=== PATIENT | male | born 1965 | race Two or more races ===

== ENCOUNTER 2019-08-11 07:30 | Inpatient (IN) | payer OTHER ==
[~2019-08-11] VITALS: Ht 170.2 cm; Wt 129.7 kg
[2019-09-21] MEDS ORDERED: ATORVASTATIN CA40 MG ORAL (15:25)
[2019-09-21] MEDS ORDERED: LOSARTAN POTASS50 MG ORAL (15:25)
[2019-09-21] MEDS ORDERED: HYDROCHLOROTHIA50 MG ORAL (15:26)
[2019-09-21] MEDS ORDERED: ASPIR 8181 MG ORAL (15:27)
[2019-09-22] VITALS (14 sets, daily range): BP systolic 107–134; BP diastolic 59–94
[2019-09-22] MEDS ORDERED: LR 1000ml 1,000 ML IVLG SCH (09:43)
--- NOTE | 2019-09-22 09:43 | Anethesia Preoperative Eval ---
Anesthesia Pre-op PMH/ROS General Date of Evaluation: September 22, 2019 Time of Evaluation: 10:42 Anesthesiologist: Sidney ASA Score: ASA 3 Mallampati Score Class I : Soft palate, uvula, fauces, pillars visible Class II: Soft palate, uvula, fauces visible Class III: Soft palate, base of uvula visible Class IV: Only hard plate visible Mallampati Classification: Class II Surgeon: Zaire Diagnosis: Back Pain Anesthesia History: none Family History: no anesthesia problems Allergies: Coded Allergies: No Known Allergies (Unverified , 08/04/19) Medications: see eMAR Patient NPO?: Yes Past Medical History Cardiovascular: Reports: HTN, other - HL Pulmonary: Reports: other - Brrochitis Other: obesity - BMI 46 Anesthesia Pre-op Phys. Exam Physician Exam Last Vital Signs Date Time Temp Pulse Resp B/P (MAP) Pulse Ox O2 Delivery O2 Flow Rate FiO2 09/22/19 09:10 Room Air 09/22/19 08:37 97.7 72 20 134/94 (107) 95 Constitutional: NAD Neurologic: CN 2-12 intact Cardiovascular: RRR Respiratory: CTA Gastrointestinal: S/NT/ND Airway Exam Mallampati Score: Class II MO: full ROM: limited Teeth: missing, intact Anesthesia Pre-op A/P Risk Assessment & Plan Assessment: ASA 3 Plan: GA, SED, GlideScope Go Status Change Before Surgery: No Pre-Antibiotics Dru Grams Ancef IV Given Within 1 Hr of Incision: Yes Time Given: 11:06 Sd Little MD September 22, 2019 09:42
[2019-09-22] MEDS ORDERED: oxyCODONE HCL/Acetaminophen 5/325mg ORAL PRN ×2 (09:45→18:45)
[2019-09-22] MEDS ORDERED: Metoclopramide 10mg/2ml Inj IVP PRN ×3 (09:45→18:45)
[2019-09-22] MEDS ORDERED: Hydromorphone 0.5mg/0.5ml inj IVP PRN ×2 (09:45→18:45)
[2019-09-22] MEDS ORDERED: HYDROcodone/Acetamin 7.5/325 tab ORAL PRN ×2 (09:45→18:45)
[2019-09-22] MEDS ORDERED: LORazepam Inj 2mg/ml 1ml IV PRN ×2 (09:45→18:45)
[2019-09-22] MEDS ORDERED: DiphenhydrAMINE 50mg/ml Inj IVP PRN ×2 (09:45→18:45)
[2019-09-22] MEDS ORDERED: Acetaminophen (Non formulary) 100 ML IV ONE (09:45)
[2019-09-22] MEDS ORDERED: Atropine Sulfate 0.4mg/ml inj IVP PRN ×2 (09:45→18:45)
[2019-09-22] MEDS ORDERED: Meperidine 25mg/0.5ml Inj (FOR RIGORS ONLY) IV PRN ×2 (09:45→18:45)
[2019-09-22] MEDS ORDERED: HYDROcodone/Acetamin 5/325 tab ORAL PRN ×2 (09:45→18:45)
[2019-09-22] MEDS ORDERED: fentaNYL 100 mcg/2 mL IV PRN ×2 (09:45→18:45)
[2019-09-22] MEDS ORDERED: Labetalol 5mg/ml 20ml vial IV PRN ×2 (09:45→18:45)
[2019-09-22] MEDS ORDERED: Midazolam 2mg/2ml Inj IVP PRN ×2 (09:45→18:45)
[2019-09-22] MEDS ORDERED: Glycopyrrolate 0.2mg/ml 1ml Vial ONE (09:50)
--- NOTE | 2019-09-22 10:31 | Pre-Procedure Note/Attestation ---
Pre-Procedure Note/Attestation Complete Prior to Procedure Planned Procedure: not applicable Procedure Narrative: L4 to S1 john and TLIF Indications for Procedure Pre-Operative Diagnosis: L4/5 spondylolisthesis with traumatic aggravation of L4 to S1 stenosis and spondylarthropathy Attestation I attest that I discussed the nature of the procedure; its benefits; risks and complications; and alternatives (and the risks and benefits of such alternatives ), prior to the procedure, with the patient (or the patient's legal wire rope sales representative). I attest that, if there was a reasonable possibility of needing a blood transfusion, the patient (or the patient's legal wire rope sales representative) was given the [place] [facility] standardized written summary, pursuant to the Sravan Spencer Blood Safety Act ([place] Health and Safety Code # 1645, as amended). I attest that I re-evaluated the patient just prior to the surgery and that there has been no change in the patient's H&P, except as documented below: Marceilno Tai MD September 22, 2019 10:31
[2019-09-22] MEDS ORDERED: Rocuronium Bromide 50mg/5ml Inj IV ONE (10:37)
[2019-09-22] MEDS ORDERED: Heparin 5000 units/ml inj ONE (10:45)
[2019-09-22] MEDS ORDERED: Lidocaine 1% MPF 10mg/ml 5ml ONE (10:45)
[2019-09-22] MEDS ORDERED: fentaNYL 100 mcg/2 mL IV ONE ×5 (10:45→16:39)
[2019-09-22] MEDS ORDERED: Sodium Chloride 10ml vial INJ ONE ×2 (10:45→16:41)
[2019-09-22] MEDS ORDERED: Dexamethasone 4mg/ml vial ONE (10:45)
[2019-09-22] MEDS ORDERED: Bupivacaine w/Epi 0.5% 30ml Vial INJ ONE (10:46)
[2019-09-22] MEDS ORDERED: Bacitracin 50000 Units Vial ONE (10:46)
[2019-09-22] MEDS ORDERED: Thrombin 5000 units TOPIC ONE (10:46)
[2019-09-22] MEDS ORDERED: Gelfoam Size TOPIC ONE (10:46)
[2019-09-22] MEDS ORDERED: Sterile Water Irrig 1000ml IRRIG ONE (11:00)
[2019-09-22] MEDS ORDERED: NS Irrig 1000ml ONE (11:00)
[2019-09-22] MEDS ORDERED: propofoL 1,000mg/100ml IV ONE (11:00)
[2019-09-22] MEDS ORDERED: LR 1000ml ONE (11:00)
[2019-09-22] MEDS ORDERED: NS Irrig 1000ml IRRIG ONE (12:11)
[2019-09-22] MEDS ORDERED: Lidocaine 1% Plain 30 ml INJ ONE ×2 (12:46→14:33)
--- NOTE | 2019-09-22 12:53 | Immediate Post-Op Evaluation ---
Immediate Post-Op Evalulation Immediate Post-Op Evalulation Procedure: PSF L4-S1 Date of Evaluation: September 22, 2019 Time of Evaluation: 18:19 IV Fluids: 2100 LR Blood Products: 200 cell saver, 1000 Alb Estimated Blood Loss: 400 Urinary Output: 600 Blood Pressure Systolic: 107 Blood Pressure Diastolic: 52 Pulse Rate: 86 Respiratory Rate: 18 O2 Sat by Pulse Oximetry: 100 Temperature (Fahrenheit): 97 Pain Score (1-10): 2 Nausea: No Vomiting: No Complications 0 Patient Status: awake, reacts, patent, extubated, none Hydration Status: adequate Dru Grams Ancef IV Given Within 1 Hr of Incision: Yes Time Given: 11:06 Sd Little MD September 22, 2019 12:53
[2019-09-22] MEDS ORDERED: PCA HYDROmorphone 1mg/ml 30 ML IV PRN (18:00)
[2019-09-22] MEDS ORDERED: PCA Education Pamphlet MISC ONE (18:00)
[2019-09-22] MEDS ORDERED: Rate Change PCA 1 Each MISC PRN (18:00)
--- NOTE | 2019-09-22 18:19 | Brief Operative Note ---
Immediate Post Operative Note Operative Note Chief Complaint: Low back pain, radiating to bilateral lower extremities Pre-op Diagnosis: L4-S1 HNP, spondylolisthesis, and stenosis Post-op Diagnosis: same as pre-op Surgeon: Dr. Tai Lawn Specialist: CEASAR Zaidi Anesthesiologist: Dr. Bedolla Anesthesia: general Specimen: none Complications: none Condition: stable Fluids: LR Estimated Blood Loss: volume - 400cc Drains: hemovac Implant(s) used?: Yes Dejuan Jarvis September 22, 2019 18:19
[2019-09-22] MEDS: PCA shift volume MISC SCH (19:00)
[2019-09-22] MEDS ORDERED: PCA HYDROmorphone 1mg/ml 30 ML IV ONE (19:02)
[2019-09-22] MEDS: ALPRAZolam 0.25mg tab ORAL PRN (22:07)
[2019-09-23] VITALS: BP 121/78
[2019-09-23 04:00] VITALS: BP 150/86
[2019-09-23 06:48] LABS: ANION GAP 10 mmol/L (5-15); BLOOD UREA NITROGEN 27 mg/dL (7-18); CALCIUM 8.3 MG/DL (8.5-10.1); CARBON DIOXIDE 28 MMOL/L (21-32); CHLORIDE 104 MMOL/L (98-107); CREATININE 2.1 MG/DL (0.55-1.30); POTASSIUM 4.5 MMOL/L (3.5-5.1); SODIUM 142 MMOL/L (136-145)
[2019-09-23] MEDS: PCA shift volume MISC SCH ×2 (07:00→19:13)
[2019-09-23 08:00] VITALS: BP 111/68
--- NOTE | 2019-09-23 08:17 | General Progress Note ---
Assessment/Plan Assessment/Plan: L4-S1 HNP, spondylolisthesis, and stenosis back pain obesity elevated cholesterol hypertension PLAN 1. incentive spirometry 2. SCD 3. PT evaluation and therapy 4. Hydration 5. Pain management/ resume home meds 6. discharge once stable with outpatient follow up Subjective Allergies: Coded Allergies: No Known Allergies (Unverified , 08/04/19) Subjective asked to follow post op Objective Last 24 Hour Vital Signs Date Time Temp Pulse Resp B/P (MAP) Pulse Ox O2 Delivery O2 Flow Rate FiO2 09/23/19 04:00 97.4 79 18 150/86 (107) 98 09/23/19 04:00 79 18 98 09/23/19 00:00 97.6 79 20 121/78 (92) 98 09/23/19 00:00 79 20 98 09/22/19 23:10 83 19 97 09/22/19 23:10 97.9 83 19 115/80 (92) 97 09/22/19 22:10 97.8 80 19 126/71 (89) 92 09/22/19 22:10 80 19 92 09/22/19 21:10 89 19 96 09/22/19 21:10 98.1 89 19 118/75 (89) 96 09/22/19 20:40 97.3 89 20 132/82 (99) 94 09/22/19 20:40 89 20 94 09/22/19 20:10 98.2 90 18 132/81 (98) 98 09/22/19 20:10 90 18 98 09/22/19 20:05 95 Nasal Cannula 2.0 28 09/22/19 19:41 97.3 09/22/19 19:41 17 09/22/19 19:26 16 09/22/19 19:20 97.3 97 17 130/68 98 Nasal Cannula 3 09/22/19 19:11 21 09/22/19 19:00 96 12 131/75 98 Nasal Cannula 3 09/22/19 18:45 95 23 117/65 99 Nasal Cannula 3 09/22/19 18:40 97.0 09/22/19 18:40 97.0 09/22/19 18:30 98 23 121/63 97 Nasal Cannula 3 09/22/19 18:20 104 21 125/59 98 Simple Mask 6 09/22/19 18:10 97 16 131/65 99 Simple Mask 6 09/22/19 18:05 98 12 111/63 99 Simple Mask 6 09/22/19 18:02 86 18 100 09/22/19 17:58 97.0 92 20 107/61 100 Simple Mask 6 09/22/19 09:10 Room Air 09/22/19 08:37 97.7 72 20 134/94 (107) 95 Intake and Output 09/22/19 09/23/19 19:00 07:00 Intake Total 3300 ml 2090 ml Output Total 226 ml 1950 ml Balance 3074 ml 140 ml Intake Oral 0 ml 840 ml IV Total 2100 ml 1250 ml Other 1200 ml Output Urine Total 226 ml 900 ml Drainage Total 1050 ml Laboratory Tests 09/23/19 05:10: Sodium Level 142, Potassium Level 4.5, Chloride Level 104, Carbon Dioxide Level 28, Anion Gap 10, Blood Urea Nitrogen 27H, Creatinine 2.1H, Estimat Glomerular Filtration Rate 33.1, Glucose Level 168H, Calcium Level 8.3L Height (Feet): 5 Height (Inches): 7.00 Weight (Pounds): 286 Objective WDWN NAD clear breath sounds bilaterally without rhonchi or wheeze [id number] without MRG NABS nontender no HSM no CCE nonfocal Arden Hernandez MD September 23, 2019 08:17
[2019-09-23] MEDS: hydroCHLOROthiazide 25mg cap ORAL SCH (09:16)
[2019-09-23] MEDS: Losartan 50mg tab ORAL SCH (09:17)
[2019-09-23] MEDS: Docusate 100mg cap ORAL SCH ×3 (09:17→17:35)
[2019-09-23] MEDS: ALPRAZolam 0.25mg tab ORAL PRN ×2 (09:29→23:08)
[2019-09-23 12:00] VITALS: BP 105/58
--- NOTE | 2019-09-23 15:29 | 48 Hour Post Anesthesia Eval ---
Post Anesthesia Evaluation Procedure: PSF L4-S1 Date of Evaluation: September 23, 2019 Time of Evaluation: 15:28 Blood Pressure Systolic: 102 0: 56 Pulse Rate: 72 Respiratory Rate: 20 Temperature (Fahrenheit): 97.6 O2 Sat by Pulse Oximetry: 98 Airway: patent Nausea: No Vomiting: No Pain Intensity: 3 Hydration Status: adequate Cardiopulmonary Status: stable Mental Status/LOC: patient returned to baseline Follow-up Care/Observations: n/a Post-Anesthesia Complications: none Follow-up care needed: N/A Kyler Miles MD September 23, 2019 15:29
[2019-09-23 16:00] VITALS: BP 99/49
--- NOTE | 2019-09-23 16:31 | Diagnostic Imaging Report ---
[facility] CLINICAL HISTORY: Back pain. COMPARISON: None FINDINGS: Fluoroscopy independent procedure performed for lumbar fusion. 71.8 seconds of fluoroscopy time utilized by the ordering physician. Total cumulative dose is 52.37 mGy and 0.39381 Gy.cm2. Total of 15 spot images are obtained . IMPRESSION: FLUOROSCOPY GUIDED PROCEDURE.
[2019-09-23 20:00] VITALS: BP 102/56
[2019-09-23] MEDS ORDERED: Atorvastatin 80mg tab ORAL SCH (21:00)
[2019-09-24] VITALS: BP 105/60
[2019-09-24 04:00] VITALS: BP 112/62
[2019-09-24] MEDS: PCA shift volume MISC SCH (07:00)
[2019-09-24 07:49] LABS: ANION GAP 8 mmol/L (5-15); BLOOD UREA NITROGEN 35 mg/dL (7-18); CALCIUM 7.5 MG/DL (8.5-10.1); CARBON DIOXIDE 28 MMOL/L (21-32); CHLORIDE 103 MMOL/L (98-107); CREATININE 1.9 MG/DL (0.55-1.30); POTASSIUM 4.3 MMOL/L (3.5-5.1); SODIUM 139 MMOL/L (136-145)
[2019-09-24 08:00] VITALS: BP 121/58
[2019-09-24] MEDS: hydroCHLOROthiazide 25mg cap ORAL SCH (09:00)
[2019-09-24] MEDS: Losartan 50mg tab ORAL SCH (09:00)
[2019-09-24] MEDS: Docusate 100mg cap ORAL SCH (09:27)
--- NOTE | 2019-09-24 10:13 | General Progress Note ---
Assessment/Plan Assessment/Plan: L4-S1 HNP, spondylolisthesis, and stenosis back pain obesity elevated cholesterol hypertension PLAN 1. incentive spirometry 2. SCD 3. PT evaluation and therapy 4. dc drains 5. Pain management/ resume home meds 6. discharge home Subjective Allergies: Coded Allergies: No Known Allergies (Unverified , 08/04/19) Subjective stable post op Objective Last 24 Hour Vital Signs Date Time Temp Pulse Resp B/P (MAP) Pulse Ox O2 Delivery O2 Flow Rate FiO2 09/24/19 09:00 121/58 09/24/19 08:00 98.9 87 18 121/58 (79) 100 09/24/19 07:25 99 Room Air 21 09/24/19 04:00 98.7 83 18 112/62 (79) 97 09/24/19 04:00 83 20 96 09/24/19 00:00 98.4 85 20 105/60 (75) 98 09/24/19 00:00 85 20 97 09/23/19 21:00 Room Air 09/23/19 20:00 85 20 98 09/23/19 20:00 98.6 84 20 102/56 (71) 98 09/23/19 17:06 98 Nasal Cannula 1.0 24 09/23/19 16:00 84 20 92 09/23/19 16:00 97.4 84 20 99/49 (66) 92 09/23/19 15:29 72 20 98 09/23/19 12:00 72 18 96 09/23/19 12:00 98.2 72 18 105/58 (74) 96 Intake and Output 09/23/19 09/24/19 19:00 07:00 Intake Total 400 ml Output Total 1360 ml 1000 ml Balance -960 ml -1000 ml Intake Oral 400 ml Output Urine Total 1000 ml 1000 ml Drainage Total 360 ml # Voids 3 Laboratory Tests 09/24/19 06:15: Sodium Level 139, Potassium Level 4.3, Chloride Level 103, Carbon Dioxide Level 28, Anion Gap 8, Blood Urea Nitrogen 35H, Creatinine 1.9H, Estimat Glomerular Filtration Rate 37.1, Glucose Level 151H, Calcium Level 7.5L Height (Feet): 5 Height (Inches): 7.00 Weight (Pounds): 286 Objective WDWN NAD clear breath sounds bilaterally without rhonchi or wheeze [id number] without MRG NABS nontender no HSM no CCE nonfocal Arden Hernandez MD September 24, 2019 10:13
[2019-09-24 12:00] VITALS: BP 119/83
--- NOTE | 2019-09-26 10:29 | Operative Note - Dictated ---
DATE OF OPERATION: 09/22/2019 PREOPERATIVE DIAGNOSES: 1. Grade 1 mobile spondylolisthesis, L4-L5, with traumatic aggravation of L4-L5 and L5-S1 motion segments. 2. Lumbar spine stenosis, L4-L5 and L5-S1, with discopathy. POSTOPERATIVE DIAGNOSES: 1. Grade 1 mobile spondylolisthesis, L4-L5, with traumatic aggravation of L4-L5 and L5-S1 motion segments. 2. Lumbar spine stenosis, L4-L5 and L5-S1, with discopathy. 3. Bilateral inferior pars fractures of L4. PROCEDURE PERFORMED: Due to patient's large body mass, complexity factor including positioning was difficult, exposure was difficult, decompression was difficult, implantation of TLIF device was arthrodesis. Patient had a significant deformity that was complex. A Modifier 22 is applied due to complexity factor as well as the body habitus factors making the procedure difficult to uphold surgery. ESTIMATED BLOOD LOSS: 600 mL. IV FLUIDS: 2 liters crystalloid provided; return cell saver, 200 cc. INTRAOPERATIVE FINDINGS: 1. Inferior pars fractures bilaterally at L4. 2. Hypermobility, L4-L5, consistent with preop x-rays. 3. Good decompression with no changes or adverse changes in neuromonitoring during surgery. 4. Solid bone flap with good fixation of TLIF implant as well as pedicle screws. 5. Good reduction of L4-L5 spondylolisthesis and maintaining of lordosis from L4 to S1 with implants. INDICATIONS FOR PROCEDURE: This is a pleasant gentleman with a significant injury to the spine. The patient had significant pain in the lumbosacral region. Clinical radiculopathy. MRIs were obtained, which demonstrated a light signal at the inferior facet of L4 on the postoperative images consistent with intraoperative findings in hindsight. Preoperative x-rays demonstrated mobile spondylolisthesis of L4-L5. Intraoperative x-rays demonstrated slight spondylolisthesis at L5-S1 with the patient relaxed prone on the Avery table. The patient had an injury to the lumbar spine and there was significant pain. He had failed a reasonable amount of conservative treatment. MRI interpretation was complex due to patient's hypermobile L4-L5 level. This was assessed from flexion-extension x-rays with the patient standing. Patient was indicated for surgery. No guarantees of outcome were given. The patient has a large body mass and ground level fall, most likely positive pars fracture that was determined intraoperatively. After preoperative clearance, discussion of all multiple alternatives including surgical and nonsurgical treatment, especially discussing risks and benefits of surgery as well as the risk of the pandemic outbreak, patient proceeded with the surgical intervention. PROCEDURE IN DETAIL: After medical optimization, patient was taken to the operating room, intubated by the anesthesiologist with appropriate lines, and neuromonitoring was attached. The patient was turned prone onto the Avery table. He has a large barrel chest body habitus, and a very muscular lumbar spine. Patient was positioned carefully with all bony prominences well padded. Arms were in neutral position, prone position. Patient's arms were in pads. The elbows were not hyperflexed and were in appropriate 90/90 flexion. Neuromonitoring was attached to the arms as well. Subsequently, after markings were made, the lumbodorsal region was prepped and draped in the usual sterile fashion. Antibiotics were delivered as per standard protocol. Subsequently, after morphine, epinephrine infiltration, the skin was incised. The fascia was incised and exposure was carried down to the L4-L5 and L5-S1 motion segments. The patient had a significantly large muscular back as well as subcutaneous tissue. There was significant difficulty with exposure due to the patient's large body habitus. This incision was approximately 4 inches. Once the exposure was completed, localized x-ray was taken. I explored the L4-5 and L5-S1 levels. The L3-L4 facet joint was clearly protected according to the standard protocols. Once the facet capsule was denuded of L4-L5 and L5-S1, I noticed that both inferior facets of L4 had a sharp transverse fracture line, which demonstrated a pseudoarthrosis. This was clearly a relatively acute fracture as pars defects from childhood would have a significantly larger facet fibrocartilaginous flap. This patient did not have this. It was a fracture transverse across the inferior facet just caudal to the supra-articular line. The L4-L5 level is also hypermobile with rotation. The pars was not fractured. Once I had the L4-L5 and L5-S1 levels identified, I began my left-sided approach as the patient had significant left-sided symptomatology. I began inferior laminotomy and hemilaminectomy of L5 and S1 to perform decompression as well as inferior facetectomy of L5 and superior articulating process facetectomy of S1 to approach the inferior disc space. Once I had the TLIF approach performed, I my sales assistant entertainment and media for protecting the dural border annulotomy with a knife and prepped the endplates for fusion. The disc space was entered. I removed the cartilage and disc material. Subsequently, I used curettes to cut the endplates, irrigated it copiously, and with locally collected bone graft mixed in 1:1 ratio with . After the bone graft was inserted, using a funnel, I mobilized the L5-S1 level by using sequential trials and once I had the exposure completed, I inserted a 9 mm TLIF implant with bone graft within the cage. I utilized the radiographic images to tap the bone graft anteriorly as well as rotated to provide optimal lordosis. This was satisfactorily created. I visually inspected the TLIF implants and used a pituitary to try to pull it back to see if it is snugly fit and to my satisfaction the implant was well fixed in the disc space confirmed on x-rays. With the patient's large body habitus with muscular lumbar spine and deep wound, it was quite difficult to implant, decompress, and instrument the patient, complexity factor applied the patient had complex anatomy hindering easy operation. Prior to implantation of the TLIF, I inserted pedicle screws using standard orthopedic technique with finding a aircraft pilot hole at L4, L5, and S1. I inserted reduction screws at L4 and L5 and standard pedicle screws at S1. The 6.5 mm diameter screws were inserted. Subsequently, I mobilized my pedals to the right side and inserted right-sided pedicle screws as well. At this point, and I began my decompression and TLIF approach. The TLIF was done at L5. Once I inspected L4-L5 gutter, I noticed that the inferior facet fracture on the left side simply loosened after as well as the traumatic event that the patient's pain. We also hypermobile. completed it and performed a larger facetectomy facet fracture. The articulating process was also decompressed and removed and was identified to the disc space under microscope and good visualization and lighting. My sales assistant entertainment and media then protected the dura. I entered the disc space, performed radical diskectomy at appropriate disc space with appropriate curettes and pituitaries. Subsequently, appropriately-sized implant was implanted at the L4-L5 level with locally collected bone graft mixed with 1:1 ratio of . Bone graft was inserted prior to entry of the disc with the TLIF. Bone was also within the TLIF cage. Subsequently, the TLIF cage was rotated and lordosis was optimized. At this point, I finished the decompression with performing further decompression of the lateral recess with ligamentum flavum. Direct visualization of the nerve roots demonstrated good decompression of the lateral recess and foraminal zones on both sides. with TLIF procedure. After decompression was completed on both sides, right and left at L4-L5 and L5-S1, I contoured a 7 mm liang, placed it into the TLIF and with my sales assistant entertainment and media placing dorsal translation of the L3 spinous processes, I sequentially used reduction maneuver to dorsally translate the L4-L5 spondylolisthesis and maintain this position spondylolisthesis at L4-L5. The L5-S1 level was also reduced to good position. Excessive liang was not noted. The reduction screw tabs were broken off and accounted for on the back table. good position of the instrumentation and neuromonitoring could change one time per biological science technician for the right upper extremity. The anesthesiologist and the biological science technician repositioned the arm. Again, the patient's large body mass 5 to 6 hours most likely led to the hand symptomatology with neuromonitoring changes. Apparently, the biological science technician neuromonitoring improved to the upper extremity. The wound was copiously irrigated with pulse lavage. Bone graft was placed into the lateral gutter the TLIF since there was no facet joint noted. Again, bone graft was 1:1 ratio of locally collected bone graft of the spinous processes shavings as well as . The posterolateral fusion was decorticated prior to application of the bone graft. Once the was engaged and locked, the set screws were reassessed and found satisfactory engaging the pedicle TLIF. The wound was reapproximated under 2 subfascial drains with #1 Vicryl for the fascia, 2-0 Vicryl for the dermis, 3-0 Monocryl for the skin with Steri-Strips applied. Bandages were placed. The patient was taken off the Avery spine table with the spine lift team without complication and taken to recovery in a stable condition. Postoperative examination demonstrated good esthesia in the small finger and ring finger consistent with ulnar entrapment. Postoperative examination demonstrates some intrinsic muscle weakness, approximately 4/5. Most likely, this is due to positioning. The patient postoperatively noted increase in his back symptomatology and will require postoperative . IMPLANTS: Medical pedicle screws with TLIF implant and locally collected bone grafts were used for graft material. Marcelino Tai M.D. DR: MARI JOB#: [id number] CC:
--- NOTE | 2019-09-26 16:17 | Discharge Summary ---
Discharge Summary Hospital Course Date of Admission September 22, 2019 at 07:41 Date of Discharge September 24, 2019 at 12:35 Admitting Diagnosis lumbar stenosis with radiculopathy Reason for Hospitalization: elective surgery HPI Kyree Barboza is a 54 year old male who was admitted on September 22, 2019 at 07: 41 for Lumbar Radiculopathy Consultations dr Hernandez-IM/pulmo/critical care Procedures see OR report Hospital Course status post surgery course of recovery uneventful initially IV fluids s/p perioperative antibiotics and sternoid neurovascular status closely monitored, remained stable incision clean dry and intact pain management was addressed ; pain was controlled remained hemodynamically stable ambulated with PT fall precautions maintained; safe for ambulation DVT prophylaxis provided use of incentive spirometry was encouraged while in the bed tolerated diet , IV fluids discontinued GI prophylaxis provided antiemetics were on board as needed blood pressure was managed with current regimen and remained stable statin continued voided freely bowel regimen instituted patient was stable for discharge discharge instructions provided follow up with surgeon in he office as advised FINAL DIAGNOSES 1. Grade 1 mobile spondylolisthesis, L4-L5, with traumatic aggravation of L4-L5 and L5-S1 motion segments. 2. Lumbar spine stenosis, L4-L5 and L5-S1, with discopathy. 3. Bilateral inferior pars fractures of L4. 4. s/p PSF L4-S1 5. HTN 6. Obesity 7. Elevated cholesterol Discharge Medications Continued Medications: Atorvastatin Calcium* (Atorvastatin Calcium*) 40 Mg Tablet 80 MG ORAL BEDTIME for as prescribed, TAB (This prescription has been renewed) Hydrochlorothiazide* (Hydrochlorothiazide*) 50 Mg Tablet 50 MG ORAL DAILY for as prescribed, TAB (This prescription has been renewed) Losartan Potassium* (Losartan Potassium*) 50 Mg Tablet 50 MG ORAL DAILY for as prescribed, TAB (This prescription has been renewed) Discontinued Medications: Aspirin* (Aspir 81*) 81 Mg Tablet. 81 MG ORAL DAILY for as prescribed, TAB Discharge Condition Upon Discharge: stable Discharge Vital Signs Last Vital Signs Date Time Temp Pulse Resp B/P (MAP) Pulse Ox O2 Delivery O2 Flow Rate FiO2 09/24/19 12:00 18 09/24/19 12:00 98.0 91 119/83 (95) 100 09/24/19 09:00 Room Air 09/24/19 07:25 21 09/23/19 17:06 1.0 Discharge Disposition Patient was discharged to home Discharge Instructions Discharge Instructions Special Instructions I have been assigned to complete a D/C Summary on this account. I was not involved in the patient management Sruthi Bermeo NP September 26, 2019 16:17
== END 2019-09-24 12:35 | disposition home or self-care (01) | DRG 460 ==
LOC: SDSOVERFLO 09-22 07:41 → 3E 09-22 19:59
PROC: 0SG00AJ Fusion of Lumbar Vertebral Joint with Interbody Fusion Device, Posterior Approach, Anterior Column, Open Approach (ICD-10-PCS; principal; 2019-09-22 10:00)
PROC: 0SG30AJ Fusion of Lumbosacral Joint with Interbody Fusion Device, Posterior Approach, Anterior Column, Open Approach (ICD-10-PCS; principal; 2019-09-22 10:00)
DX: M43.16 Spondylolisthesis, lumbar region (principal); M54.16 Radiculopathy, lumbar region; M48.061 Spinal stenosis, lumbar region without neurogenic claudication; E66.9 Obesity, unspecified; I10 Essential (primary) hypertension
CPT/HCPCS: 36415; 72020; 76000; 80048; 82962; 86850; 86900; 86901; 86920; 87081; J2180; J2250; J2405; J7030